=== PATIENT | female | born 1970 | race Caucasian/White ===

== ENCOUNTER 2016-03-25 12:54 | Outpatient (CLI) | payer OTHER ==
--- NOTE | 2016-03-25 16:58 | Diagnostic Imaging Report ---
[facility] [id number] [facility] [address] [place], [place]. [address] Report Submission Date: Mar 25, 2016 3:23:43 PM CAR HIKER Patient Study Name: SHERON SALINAS Date: Mar 25, 2016 1:16:29 PM CAR HIKER Modality Type: CT\SR Gender: F Description: CT ABD & PELVIS W/O CO : 72 Institution: [facility] Physician: SUNITA PEREZ CT Abdomen/pelvis without contrast History: PAIN ON RIGHT SIDE CONTINUOUS AFTER GALLBLADDER REMOVAL IN 2015. (Hx) / STONES Multiple axial images of the abdomen and pelvis are submitted with reconstructions Findings: No comparison studies No consolidation at the lung bases. No free intraperitoneal air Degenerative changes lumbosacral spine bilateral sacroiliitis Post cholecystectomy Liver is heterogeneous in density, no localized fluid collection in the Ashraf 's pouch, calcified splenic granulomas are present. Adrenal glands, pancreas are within normal limits. There is minimal fat stranding in the peripancreatic region Urinary bladder is partially distended, no hydronephrosis bilaterally Left renal interpolar region 6 mm fat containing hypodense lesion, likely an angiomyolipoma Umbilical hernia contains omentum measures 1.6 cm in the neck. Right adnexal cyst measures 2.7 cm, left adnexal cyst measures 3.3 cm, vascular calcification Minimal scarring and small amount of free fluid is seen in the pouch of Adam on the right. Surgical clip is seen in the perirectal region No bowel obstruction. Appendix is normal in size. Impression: 1. No fluid collection or abscess in the Ashraf's pouch. No intra-or extrahepatic biliary dilatation There is minimal fat stranding and few prominent lymph nodes in the lesser sac, around the origin of the celiac axis and the pancreas, questionable for early pancreatitis. Laboratory correlation may be done. No localized fluid collection around the pancreas 2. Umbilical hernia contains omentum. No bowel obstruction. Appendix is normal in size. 3. Bilateral adnexal cysts. Minimal free fluid and scarring in the pouch of Adam on the right. Surgical clip is seen in this region. Pelvic ultrasound may be done 4. Incidentally noted is a small 6 mm fat containing lesion in the left renal interpolar region, may represent an angiomyolipoma Electronically signed on Mar 25, 2016 3:23:43 PM CAR HIKER by: Margi WALLS
== END 2016-03-25 12:55 ==
LOC: RAD 12:54
PROVIDERS: ATTEND Family Medicine
DX: R10.9 Unspecified abdominal pain (principal); K42.9 Umbilical hernia without obstruction or gangrene
CPT/HCPCS: 74176

== ENCOUNTER 2016-12-08 11:00 | Outpatient (CLI) | payer OTHER ==
--- NOTE | 2016-12-08 14:28 | Diagnostic Imaging Report ---
ANA DORSEY [facility] [address] [facility] [address] [place], [place]. [address] Report Submission Date: Dec 08, 2016 1:27:46 PM CDT Patient Study Name: SHERON SALINAS Date: Dec 08, 2016 11:09:08 AM CDT Modality Type: CT\SR Gender: F Description: CT ABD & PELVIS W/O CO : 72 Institution: [facility] Physician: ANA DORSEY Examination: CT Abdomen/pelvis History: Abdominal discomfort Comparison exams: 25 March 2016 Technique: CT Abdomen/pelvis without contrast protocol. Findings: Liver, spleen, adrenal glands, kidneys, and pancreas are without irregularity given exam technique. Stable 6 mm presumed angiomyolipoma left kidney. Surgical clips gallbladder fossa. No suspicious renal calcifications. Ureters are nondilated in their course through the abdomen and pelvis. No central calcification. Bladder margins are without irregularity. Pelvic phleboliths. Abdominal aorta without abnormal dilation or peripheral atherosclerotic disease. Cardiac silhouette is not enlarged. No pericardial effusion. Bowel without contrast limiting evaluation. No evidence for acute mesenteric inflammation or free air. Stool throughout the large bowel limiting sensitivity. Appendix not visualized. Stable umbilical hernia. No bowel involvement. Left ovary measures 2.7 cm. Osseous structures demonstrate degenerative changes. Lung bases without infiltrate. Impression: No evidence for acute inflammatory process given exam technique. No suspicious renal calcifications or abnormal ureteric dilation. No abnormal bowel dilation. Stable umbilical hernia. Stable 6 mm presumed angiomyolipoma left kidney Electronically signed on Dec 08, 2016 1:27:46 PM CDT by: Ranulfo WALLS
== END 2016-12-08 11:02 ==
LOC: RAD 11:00
PROVIDERS: ATTEND Family Medicine
DX: R10.84 Generalized abdominal pain (principal)
CPT/HCPCS: 74176

== ENCOUNTER 2018-07-25 18:19 | Observation (INO) | payer OTHER ==
[2018-07-25] MEDS ORDERED: PROMETHAZINE HCL 25 MG in 0.9 % SODIUM CHLORIDE 50 ML IV ONE (18:33)
[2018-07-25] MEDS ORDERED: 0.9 % SODIUM CHLORIDE 1,000 ML IV ONE (18:33)
[2018-07-25] MEDS ORDERED: IPRATROPIUM/ALBUTEROL SULFATE 3 ML AMPUL.NEB NEB ONE (18:33)
--- NOTE | 2018-07-25 18:35 | ED Physician Documentation ---
Upper Respiratory Symptoms - HISTORIAN Historian: patient, spouse - HPI Stated Complaint: Cough, Nausea, Vomiting, Diarrhea Chief Complaint: Cough/ Upper Respiratory Additional Information: Patient is a 47-year-old female who presents to the ER with productive cough, fever, chills, body aches, nausea, vomiting, and diarrhea. She was treated for cough and congestion 4 days ago with Augmentin; treated for nausea & vomiting with Zofran with no relief. She states that she is running fevers up to 101 with chills. She is unable to tolerate PO liquids. She is short of breath with exertion. Onset: days ago (4 days ago) Duration: sudden-Onset Context: denies: recent foreign travel, multiple patients Severity: moderate Associated Symptoms: fever, chills, hoarseness, productive cough, shortness of breath, headache Worsened by Deep Breath: No Further Comments: no - ROS CONST/EYES: weakness CVS/RESP: shortness of breath LYMPH: denies: rash GI/: vomiting, nausea, diarrhea NEURO/PSYCH: dizziness MS/SKIN: muscle aches - PAST HX Lung Disease: none PE Risk Factors: hypertension Other History: other (depression) Surgeries/Procedures: cholecystectomy, hysterectomy, other (back) Immunizations: UTD Allergies/Adverse Reactions: Allergies Allergy/AdvReac Type Severity Reaction Status Date / Time No Known Drug Allergies Allergy Verified 07/25/18 18:31 - SOCIAL HX Smoking History: less than 1 pack/day Alcohol Use: none Drug Use: none - FAMILY HX Family History: none - VITAL SIGNS Vital Signs: Vital Signs Temp Pulse Resp BP Pulse Ox 97.9 F 90 18 113/74 100 07/25/18 18:20 07/25/18 19:06 07/25/18 19:06 07/25/18 19:06 07/25/18 19:06 - REVIEWED ASSESSMENTS Nursing Assessment Reviewed: Yes Vitals Reviewed: Yes Progress - Progress Progress: 19:42 patient continues to harsh a frequent harsh cough- shortness of breath- has had a duoneb and will give Pulmicort CXR is negative, however, patient has had nausea and vomiting for 4-5 days. Will hydrate and repeat CXR in the morning. Will treat patient for suspected pneumonia- will start on Rocephin and Zithromax, Duoneb every 4 hours, Pulmicort BID Will treat patient with IV steroids for possible bronchitis with wheezing Will give Robitussin AC prn for harsh frequent cough Will start NS with 40 meq of KCL at 80cc/hr to treat hypokalemia- monitor rate of IVF due to hx of HTN ED Results Lab/Radiology - Radiology Radiology Impressions: Examination: PA and lateral chest. History: Evaluate lung rosen. Comparison exam: None provided. Findings: PA and lateral views of the chest demonstrates a normal cardiac and mediastinal silhouette. No focal infiltrate. No blunting of the costophrenic margins. Osseous structures are appropriate for age. Impression: No acute pulmonary process. Electronically signed on July 25, 2018 7:39:43 PM CDT by: Ranulfo Garcia - Orders Orders: ED Orders Category Date Time Status Place IV Lock 1T Care 07/25/18 18:32 Active CHEST 2VIEW [RAD] Stat Exams 07/25/18 Ordered BLOOD CULTURE Stat Lab 07/25/18 Ordered CBC/PLATELET/DIFF Stat Lab 07/25/18 19:14 Received CMP Stat Lab 07/25/18 19:14 Received 0.9 % Sodium Chloride [Normal Saline] 1,000 ml Med 07/25/18 18:33 Discontinued IV Q1H Budesonide [Pulmicort] Med 07/25/18 19:37 Discontinued 0.5 mg NEB NOW ONE Ipratropium/Albuterol Sulfate [Duoneb] Med 07/25/18 18:33 Discontinued 3 ml NEB NOW ONE Ketorolac Tromethamine [Toradol] Med 07/25/18 19:29 Discontinued 30 mg .ROUTE .STK-MED ONE Ketorolac Tromethamine [Toradol] Med 07/25/18 19:36 Discontinued 30 mg IV NOW ONE Promethazine HCl [Phenergan] 25 mg Med 07/25/18 18:33 Discontinued 0.9 % Sodium Chloride [Normal Saline] 50 ml IV NOW cefTRIAXone SODIUM [Rocephin] 1 gm Med 07/25/18 19:41 Discontinued 0.9 % Sodium Chloride [Normal Saline] 50 ml IV NOW methylPREDNISolone SOD SUCC [SOLU-Medrol] Med 07/25/18 20:01 Discontinued 125 mg IVP NOW ONE Upper Respiratory Symptoms - EXAM General Appearance: alert, mild distress EENT: eyes nml inspection, lids & conjunct. nml, PERRL, pale conjunctivae, airway nml, hoarse voice Neck: normal inspection, supple Respiratory: wheezes (left upper lobe), other (decreased breath sounds in the right lower lobe) Abdomen: non-tender, nml bowel sounds CVS: heart sounds normal Skin: warm,dry, pallor Extremities: normal range of motion Neuro/Psych: oriented x3, neuro intact, mood/affect nml Discharge Clincal Impression: Pneumonia, Hypokalemia, Dehydration, Failure of outpatient treatment, Nausea vomiting and diarrhea Comments: Will admit patient observation and monitor closely- will repeat chest xray in the morning for suspected pneumonia Condition: Stable Decision to Admit: [id number] Decision Time: 20:10
[2018-07-25] MEDS ORDERED: KETOROLAC TROMETHAMINE 30 MG/1ML VIAL ONE (19:29)
[2018-07-25] MEDS ORDERED: KETOROLAC TROMETHAMINE 30 MG/1ML VIAL IV ONE (19:36)
[2018-07-25] MEDS ORDERED: BUDESONIDE 0.5MG/2ML AMPUL.NEB NEB ONE (19:37)
[2018-07-25] MEDS ORDERED: cefTRIAXone SODIUM 1 GM in 0.9 % SODIUM CHLORIDE 50 ML IV ONE (19:41)
[2018-07-25] MEDS ORDERED: methylPREDNISolone SOD SUCC 125 MG/2 ML VIAL IVP ONE (20:01)
[2018-07-25] MEDS ORDERED: PROMETHAZINE HCL 25 MG in 0.9 % SODIUM CHLORIDE 50 ML IV PRN (20:06)
[2018-07-25] MEDS ORDERED: ZOLPIDEM TARTRATE 5 MG TABLET PO PRN (20:15)
[2018-07-25] MEDS ORDERED: PRAMIPEXOLE DI HCL 0.125 MG PO SCH (20:30)
[2018-07-25] MEDS ORDERED: AZITHROMYCIN 500 MG in 0.9 % SODIUM CHLORIDE 250 ML IV SCH (20:30)
[2018-07-25 20:37] VITALS: BMI 32.5
[2018-07-25] MEDS ORDERED: AZITHROMYCIN 500 MG VIAL IV ONE (21:31)
[2018-07-25] MEDS ORDERED: 0.9 % SODIUM CHLORIDE 250 ML IV ONE (21:31)
[2018-07-25] MEDS: POTASSIUM CHLORIDE 40 MEQ/NS 1,000 ML IV SCH (21:43)
[2018-07-25] MEDS: IPRATROPIUM/ALBUTEROL SULFATE 3 ML AMPUL.NEB NEB SCH (22:30)
[2018-07-26] MEDS: IPRATROPIUM/ALBUTEROL SULFATE 3 ML AMPUL.NEB NEB SCH ×4 (02:44→13:19)
[2018-07-26 05:12] LABS: BASOPHILS % 0.4 % (0.0-1.5); NEUTROPHILS # 7.6 # k/uL (1.4-7.7)
[2018-07-26 05:37] LABS: eGFR (Non-African) > 60
--- NOTE | 2018-07-26 05:52 | Diagnostic Imaging Report ---
RUSSELL DOLAN ED [facility] [address] [facility] [address] [place], [place]. [address] Report Submission Date: July 25, 2018 7:39:43 PM CDT Patient Study Name: SHERON SALINAS Date: July 25, 2018 7:17:28 PM CDT Modality Type: DX Gender: F Description: CHEST 2VIEW : 72 Institution: [facility] Physician: RUSSELL DOLAN ED Examination: PA and lateral chest. History: Evaluate lung rosen. Comparison exam: None provided. Findings: PA and lateral views of the chest demonstrates a normal cardiac and mediastinal silhouette. No focal infiltrate. No blunting of the costophrenic margins. Osseous structures are appropriate for age. Impression: No acute pulmonary process. Electronically signed on July 25, 2018 7:39:43 PM CDT by: Ranulfo WALLS
[2018-07-26 06:13] LABS: BASOPHILS % 0.7 % (0.0-1.5); NEUTROPHILS # 4.7 # k/uL (1.4-7.7)
[2018-07-26 06:19] LABS: eGFR (Non-African) > 60
--- NOTE | 2018-07-26 06:32 | Inpatient Progress Note ---
Subjective - Required Recertification Statement I anticipate X number of days because-include discharge plan: 1 - Review of Systems Events since last encounter: Patient resting comfortably this morning- still not feeling well- harsh frequent coughing- fatigue. General: Fatigue HEENT: Head Aches, Sinus Congestion Pulmonary: Dyspnea, Cough Cardiovascular: Denies: Chest Pain, Edema Gastrointestinal: Nausea. Denies: Vomiting Genitourinary: Denies: Dysuria Musculoskeletal: Back Pain Neurological: Weakness Objective - Exam Vitals and I&O: Vital Signs Temp 97.4 F L 07/26/18 05:57 Pulse 66 07/26/18 05:57 Resp 16 07/26/18 05:57 BP 110/59 07/26/18 05:57 Pulse Ox 96 07/26/18 05:57 Intake & Output 07/25/18 07/25/18 07/26/18 11:59 23:59 11:59 Intake Total 960 Balance 960 Weight 88.904 kg Intake: IV 480 Left Antecubital 480 Oral 480 Other: Voiding Method Toilet Toilet # Voids 2 # Bowel Movements 0 General: Alert, Oriented to Person, Oriented to Place, Oriented to Time, Cooperative, Mild distress, Obese HEENT: Atraumatic, PERRLA, Mouth Mucous membr. moist/[place], Nose Mucous membr. moist/[place] Neck: Supple, +2 carotid pulse wo bruit Lungs: Clear to auscultation, Normal air movement, Speaks full Sentences, Wheezes Cardiovascular: Regular rate, Normal S1, Normal S2 Abdomen: Normal bowel sounds, Soft Skin: Warm, Dry, Pale Neurological: Normal gait, Normal speech, Strength Equal Bilat, Sensation intact Psych/Mental Status: Mental status NL, Mood NL, Appropriate Affect, Intact Judgment - Results Results: Laboratory Results WBC 8.80 K/ul (4.00-12.00) 07/26/18 05:00 RBC 4.53 M/ul (3.90-5.20) 07/26/18 05:00 Hgb 13.9 g/dL (11.5-16.0) 07/26/18 05:00 Hct 40.8 % (34.5-46.5) 07/26/18 05:00 MCV 90.0 fl (80.0-100.0) 07/26/18 05:00 MCH 30.7 pg (28.0-34.0) 07/26/18 05:00 MCHC 34.1 g/dL (30.0-36.0) 07/26/18 05:00 RDW 13.3 % (11.3-14.3) 07/26/18 05:00 Plt Count 214 K/mm3 (130-400) 07/26/18 05:00 Neut % (Auto) 86.7 % (39.0-79.0) H 07/26/18 05:00 Lymph % (Auto) 9.6 % (16.0-50.0) L 07/26/18 05:00 [place] % (Auto) 2.4 % (0.0-11.0) 07/26/18 05:00 Eos % (Auto) 0.9 % (0.0-6.8) 07/26/18 05:00 Baso % (Auto) 0.4 % (0.0-1.5) 07/26/18 05:00 Neut # (Auto) 7.6 # k/uL (1.4-7.7) 07/26/18 05:00 Lymph # (Auto) 0.8 # k/uL (0.6-4.0) 07/26/18 05:00 [place] # (Auto) 0.2 # k/uL (0.0-0.9) 07/26/18 05:00 Eos # (Auto) 0.1 # k/uL (0.0-0.6) 07/26/18 05:00 Baso # (Auto) 0.0 # k/uL (0.0-0.5) 07/26/18 05:00 Sodium 136 mmol/L (137-145) L 07/26/18 05:00 Potassium 3.6 mmol/L (3.5-5.1) 07/26/18 05:00 Chloride 107 mmol/L (98-107) 07/26/18 05:00 Carbon Dioxide 20 mmol/L (22-30) L 07/26/18 05:00 BUN 5 mg/dL (7-17) L 07/26/18 05:00 Creatinine 0.66 mg/dL (0.52-1.04) 07/26/18 05:00 Estimated Creat Clear 175 07/26/18 05:00 Est GFR ( Amer) > 60 (60-) 07/26/18 05:00 Est GFR (Non-Af Amer) > 60 (60-) 07/26/18 05:00 Glucose 157 mg/dL (74-106) H 07/26/18 05:00 Calcium 9.1 mg/dL (8.4-10.2) 07/26/18 05:00 Total Bilirubin 0.3 mg/dL (0.2-1.3) 07/26/18 05:00 AST 35 U/L (15-46) 07/26/18 05:00 ALT 26 U/L (0-35) 07/26/18 05:00 Alkaline Phosphatase 77 U/L (38-126) 07/26/18 05:00 Total Protein 7.0 g/dL (6.3-8.2) 07/26/18 05:00 Albumin 3.8 g/dL (3.5-5.0) 07/26/18 05:00 Assessment/Plan - Assessment/Plan (1) Dehydration Status: Acute Plan: Will hydrate via IV (2) Hypokalemia Status: Acute Plan: Will give NS with 40 meq KCL (3) Nausea vomiting and diarrhea Status: Acute Plan: Will give Phenergan IV every 6 hours as needed for nausea/vomiting (4) Pneumonia Status: Acute Plan: Will give IV Zithromax and Rocephin, Duonebs every 4 hours
[2018-07-26] MEDS ORDERED: PRAMIPEXOLE DI-HCL 0.5 MG TABLET PO ONE (07:30)
--- NOTE | 2018-07-26 08:21 | Diagnostic Imaging Report ---
JER DOLAN [facility] [address] [facility].[address] [address] Report Submission Date: July 26, 2018 8:19:47 AM CDT Patient Study Name: SHERON SALINAS Date: July 26, 2018 7:54:01 AM CDT Modality Type: DX Gender: F Description: CHEST 2VIEW : 72 Institution: [facility] Physician: JER DOLAN Examination: PA and lateral chest. History: Evaluate lung rosen. F/U CHEST PAIN AND COUGH Comparison exam: 25 Jul 2018 Findings: PA and lateral views of the chest demonstrates a normal cardiac and mediastinal silhouette. No focal infiltrate. No blunting of the costophrenic margins. Osseous structures are appropriate for age. Impression: Stable chest. No acute pulmonary process. Electronically signed on July 26, 2018 8:19:47 AM CDT by: Ranulfo WALLS
[2018-07-26] MEDS ORDERED: ACETAMINOPHEN 325 MG TABLET PO PRN (08:53)
[2018-07-26] MEDS ORDERED: ENOXAPARIN SODIUM 40 MG/0.4 ML DISP.SYRIN SQ SCH (09:00)
[2018-07-26] MEDS ORDERED: hydroCHLOROthiazide 25 MG TABLET PO SCH (09:00)
[2018-07-26] MEDS ORDERED: BUDESONIDE 0.5MG/2ML AMPUL.NEB NEB SCH (09:00)
[2018-07-26] MEDS ORDERED: DESVENLAFAXINE SUCCINATE 50 MG PO SCH (09:00)
[2018-07-26] MEDS ORDERED: CITALOPRAM HYDROBROMIDE 20 MG TABLET PO SCH ×2 (09:00→21:00)
[2018-07-26] MEDS ORDERED: AMITRIPTYLINE HCL 25 MG TABLET PO SCH (09:00)
[2018-07-26] MEDS ORDERED: methylPREDNISolone SOD SUCC 40 MG/ML VIAL IVP SCH (09:00)
[2018-07-26] MEDS ORDERED: cefTRIAXone SODIUM 1 GM in 0.9 % SODIUM CHLORIDE 50 ML IV SCH (09:00)
[2018-07-26 13:56] VITALS: BP 120/58
[2018-07-26] MEDS: POTASSIUM CHLORIDE 40 MEQ/NS 1,000 ML IV SCH (14:34)
--- NOTE | 2018-07-26 15:44 | Discharge Summary ---
Discharge Summary - Discharge [facility] Admission Date: 07/25/18 Discharge Date: 07/26/18 Discharge To: Home History of Present Illness: Patient is a 47-year-old female admitted from the ER with productive cough, fever, chills, body aches, nausea, vomiting, and diarrhea. She was treated for cough and congestion 4 days ago with Augmentin; treated for nausea & vomiting with Zofran with no relief. She states that she is running fevers up to 101 w ith chills. She is unable to tolerate PO liquids. She is short of breath with exertion. Will admit observation and treat with IV fluids, anitemetics, antibiotics and duonebs. Condition at Discharge: Stable Home Medications: Ambulatory Orders Medication Instructions Recorded Albuterol Sulfate [Albuterol 1 - 2 puff IH PRN PRN #1 hfa.aer.ad 07/26/18 Sulfate Hfa] Azithromycin [Zithromax] 250 mg PO DAILY #4 tablet 07/26/18 Cefuroxime Axetil [Ceftin] 250 mg PO BID #20 tablet 07/26/18 Methylprednisolone [Medrol] 4 mg PO DAILY #21 tab.ds.pk 07/26/18 Consultations this Visit: None Procedures this Visit: None Allergies/Adverse Reactions: Allergies Allergy/AdvReac Type Severity Reaction Status Date / Time No Known Drug Allergies Allergy Verified 07/25/18 18:31 Discharge Summary: Patient is a 47-year-old female who presented who was admitted observation last night through the ER. Patient states that she is feeling much better this evening and feels that she can go home. She has family support- has had no vo miting- feels that she can breathe easier. She will continue on oral antibiotics. Hospital Course: IV fluids for hydration with potassium for Hypokalemia, IV antibiotics, antiemetics for nausea, and duonebs for SOA - Final Diagnosis (1) Dehydration Problems: Corrected- will continue to increase fluid intake (no caffeine) Right or Left: Right (2) Nausea vomiting and diarrhea Problems: Corrected- will advance diet as tolerated (3) Pneumonia Problems: Will continue on oral antibiotics; tobacco education provided Right or Left: Right
[2018-07-26] MEDS ORDERED: PRAMIPEXOLE DI-HCL 0.5 MG TABLET PO SCH (21:00)
== END 2018-07-26 16:27 | disposition home or self-care (01) ==
LOC: ED 18:19 → SOUTH 20:05
PROVIDERS: ADMIT Nurse Practitioner Family; ATTEND Nurse Practitioner Family
DX: E86.0 Dehydration (principal); E87.6 Hypokalemia; R11.2 Nausea with vomiting, unspecified; R19.7 Diarrhea, unspecified; J18.9 Pneumonia, unspecified organism
CPT/HCPCS: 36415; 71046; 80053; 85025; 87040; 87400; 94640; 94760; 99218; A9270; G0378; J0456; J0696; J1650; J1885; J2550; J2920; J2930; J3480; J7030; J7050; J7626; J1030; S1016